=== PATIENT | male | born 1975 | race Caucasian/White ===

== ENCOUNTER → 2021-01-21 | Outpatient (CLI) | payer OTHER ==
--- NOTE | 2021-01-21 21:59 | REPVR ---
PROCEDURE INFORMATION: Exam: MR Left Upper Extremity Joint Without Contrast; Shoulder Exam date and time: 01/21/2021 7:14 PM Age: 45 years old Clinical indication: Pain; Shoulder; Left; Additional info: Lt shoulder pain TECHNIQUE: Imaging protocol: MR of the Left upper extremity without contrast. Exam focused on the shoulder. COMPARISON: No relevant prior studies available. FINDINGS: The rotator cuff is intact and demonstrates normal morphology and signal intensity. The long head of the biceps tendon is intact and normally located within the bicipital groove. There is a small amount of loculated fluid in the biceps tendon sheath. The biceps anchor is intact. There is a small to moderate amount of loculated fluid and synovitis in the rotator cuff interval and subscapularis recess. 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 Evaluation of the labrum is suboptimal without intra-articular contrast. There is extensive anterior and superior labral tearing. Bone marrow signal is normal. There is no evidence of acute fracture or dislocation. Alignment is anatomic. There are mild degenerative changes of the acromioclavicular joint. There is a small glenohumeral joint effusion with evidence of synovitis. IMPRESSION: 1. Extensive anterior and superior labral tearing, suboptimally evaluated without intra-articular contrast. 2. Mild biceps tenosynovitis. 3. Small to moderate amount of loculated fluid and synovitis in the rotator cuff interval and subscapularis recess. Adhesive capsulitis could produce this appearance. 4. Additional findings, as above. Electronically signed by: Rene Segura On 01/21/2021 21:59:16 PM
== END ==
LOC: M RAD 18:02
PROVIDERS: ATTEND Family Medicine
DX: M25.512 Pain in left shoulder (principal)